=== PATIENT | female | born 1975 | race Two or more races ===

== ENCOUNTER 2020-12-25 05:35 | Inpatient (IN) | payer OTHER ==
[~2020-12-25] VITALS: Ht 121.9 cm; Wt 5.0 kg
[~2020-12-25 05:35] MED LIST: AVASTIN25 MG/1 ML IV; [UNRECOGNIZED DRUG - CODE]; [UNRECOGNIZED DRUG - OTHER]; [UNRECOGNIZED DRUG - OTHER]
[2020-12-26] MEDS ORDERED: OXALIPLATIN50 MG (08:15)
[2020-12-26] MEDS ORDERED: FLUOROURAC5 GM/100 M (08:36)
[2020-12-26] MEDS ORDERED: LEUCOVORIN CALCI5 MG (08:37)
== END 2020-12-27 11:49 | disposition home or self-care (01) | DRG 375 ==
LOC: CIR.AMB 05:35 → SURH 09:49 → O/R 09:49 → SURH 09:52
PROVIDERS: ADMIT Colon & Rectal Surgery; ATTEND Colon & Rectal Surgery
PROC: 05H633Z Insertion of Infusion Device into Left Subclavian Vein, Percutaneous Approach (ICD-10-PCS; 2020-12-25)
PROC: 0JPV0WZ Removal of Totally Implantable Vascular Access Device from Upper Extremity Subcutaneous Tissue and Fascia, Open Approach (ICD-10-PCS; principal; 2020-12-25 09:00)
DX: C18.4 Malignant neoplasm of transverse colon (principal); T81.509A Unspecified complication of foreign body accidentally left in body following unspecified procedure, initial encounter; R59.0 Localized enlarged lymph nodes